=== PATIENT | male | born 1980 | race Caucasian/White ===

== ENCOUNTER → 2025-10-11 17:33 | Outpatient (REF) | payer OTHER, SELFPAY | LOC: RAD 17:33 | PROVIDERS: ATTENDING PHYSICIAN Family Medicine | DX: K59.00 Constipation, unspecified (principal); Z12.5 Encounter for screening for malignant neoplasm of prostate; Z00.00 Encounter for general adult medical examination without abnormal findings; Z80.42 Family history of malignant neoplasm of prostate | CPT/HCPCS: 74018 ==